=== PATIENT | female | born 1935 | race Caucasian/White ===

== ENCOUNTER → 2016-12-02 | Day surgery (SDC) | payer MEDICARE ==
[~2016-12-02] MED LIST: ATOR10TA60 PO; ATOR40TA59 PO; IV RINGERS,LACTATED 1000ML 1,000 ML IV SCH; LOSA1TAB18 PO; NAPR220T70 PO; PROPOFOL 40 ML IV ONE
[2016-12-02 10:53] VITALS: BP 122/59
--- NOTE | 2016-12-03 13:25 | PATHOLOGY ---
PATHOLOGY REPORT * * * * * * * * FINAL DIAGNOSIS: A. Terminal ileum biopsy: - Segment of colonic mucosa showing collagenous colitis. B. Random colon biopsy: - Collagenous colitis. COMMENT: Sections of the terminal ileum and random colon biopsies appear similar and reveal segments of colonic mucosa showing a mild chronic active colitis without crypt architectural distortion. Collagen is deposited around the absorptive capillary complex beneath the surface epithelium. The findings are supportive of the diagnosis of collagenous colitis. (JPM:mggaston; d/t: 12/03/16) REPORT ELECTRONICALLY SIGNED BY: Fili Raza M.D. DATE/TIME: 12/03/2016 13:24 * * * * * * * * GROSS PATHOLOGY: A. Received in formalin labeled "Mesha Lopez and terminal ileum bx," is a segment of looney soft tissue measuring 0.3 cm in maximum dimension. The specimen is submitted entirely in cassette A1. B. Received in formalin labeled "Mesha Lopez and random colon bx," are 7 segments of looney soft tissue measuring 1.9 x 0.5 x 0.3 cm in aggregate dimensions and ranging from 0.2 to 0.7 cm in maximum dimension. The specimen is submitted entirely in cassette B1. (TTL; 12/02/2016) INITIAL CPT CODE(S): A; 48952 B; 49694 Professional services performed [place] [facility] [address] Technical services performed by [facility] at [address] [place] [address] [address] [address]. SPECIMEN(S) RECEIVED: A.Terminal ileum biopsy B.Random colon biopsy CLINICAL HISTORY: Diarrhea PATIENT: MESHA LOPEZ /AGE: 212/29/1935 (Age: 80) PATIENT #: [id number] ALT CASE #: SPECIMEN COLLECTION DATE: 12/02/2016 SPECIMEN RECEIVED DATE: 12/02/2016 [facility] - [address] [place] [address] - PHONE: [phone] * * * END OF REPORT * * *
== END ==
LOC: SURG 08:13
PROVIDERS: ATTEND Internal Medicine Gastroenterology
DX: K52.9 Noninfective gastroenteritis and colitis, unspecified (principal); K83.0 Cholangitis; K64.0 First degree hemorrhoids; K57.30 Diverticulosis of large intestine without perforation or abscess without bleeding; I10 Essential (primary) hypertension; E78.00 Pure hypercholesterolemia, unspecified; I00 Rheumatic fever without heart involvement; Z82.49 Family history of ischemic heart disease and other diseases of the circulatory system; Z82.3 Family history of stroke; Z72.89 Other problems related to lifestyle; Z90.710 Acquired absence of both cervix and uterus; Z98.890 Other specified postprocedural states; Z87.891 Personal history of nicotine dependence
CPT/HCPCS: 45380; J2704; 88305

== ENCOUNTER → 2017-06-16 | Outpatient (CLI) | payer BC ==
[2016-12-02 10:53] VITALS: BP 122/59
[~2017-06-16] MED LIST changes: -IV RINGERS,LACTATED 1000ML 1,000 ML IV SCH; -PROPOFOL 40 ML IV ONE
--- NOTE | 2017-06-16 12:05 | RAD ---
DATE: 06/16/2017 EXAM: MAMMO MARLA SCREENING BILATERAL HISTORY: Routine screening COMPARISON: 05/10/2016, 05/20/2016 The breast parenchyma shows scattered fibroglandular densities. Breast parenchyma level B. FINDINGS: 2-D and 3-D tomosynthesis imaging was performed in CC and MLO projections. No new or enlarging breast densities are seen. Scattered benign type calcifications are present. No suspicious microcalcifications have developed. IMPRESSION: Stable mammograms without evidence of malignancy. BI-RADS CATEGORY: 2 BENIGN FINDING(S) RECOMMENDED FOLLOW-UP: 12M 12 MONTH FOLLOW-UP PQRS compliance statement: Patient information was entered into a reminder system with a target due date for the next mammogram. Mammography is a sensitive method for finding small breast cancers, but it does not detect them all and is not a substitute for careful clinical examination. A negative mammogram does not negate a clinically suspicious finding and should not result in delay in biopsying a clinically suspicious abnormality. "Our facility is accredited by the [employer] Mammography Program."
== END | disposition home or self-care (01) ==
LOC: KCIC MAMMO 11:02
PROVIDERS: ATTEND Family Medicine
DX: Z12.31 Encounter for screening mammogram for malignant neoplasm of breast (principal)
CPT/HCPCS: 77063; G0202; 77067

== ENCOUNTER 2017-06-24 06:18 | Observation (INO) | payer BC ==
[2017-06-24] VITALS (15 sets, daily range): BP systolic 134–192; BP diastolic 61–79
[~2017-06-24] VITALS: Ht 157.5 cm; Wt 65.0 kg
[2017-06-24] MEDS ORDERED: CALC500T30 PO (06:43)
[2017-06-24 07:08] LABS: HEMATOCRIT 38.1 % (36.0-47.0); HEMOGLOBIN 12.9 g/dL (12.0-15.5); RED BLOOD COUNT 4.09 x10^6/uL (3.50-5.40); RED CELL DISTRIBUTION WIDTH 13.6 % (11.5-14.5); WHITE BLOOD COUNT 5.6 x10^3/uL (4.0-11.0)
[2017-06-24] MEDS ORDERED: LIDOCAINE 2% 20 ML VIAL. ONE ×2 (07:08→08:36)
[2017-06-24] MEDS ORDERED: IODIXANOL 320 MG/ML 100 ML VIAL. ONE (07:10)
[2017-06-24 07:19] LABS: CALCIUM 9.6 mg/dL (8.5-10.1); CREATININE 1.7 mg/dL (0.6-1.0); GFR 28.9; POTASSIUM 4.4 mmol/L (3.5-5.1)
[2017-06-24 07:31] LABS: PROTHROMBIN TIME PATIENT 12.8 SEC (11.7-14.0)
[2017-06-24] MEDS ORDERED: MIDAZOLAM HCL/PF 2 MG/2 ML VIAL. ONE ×2 (07:48→08:48)
[2017-06-24] MEDS ORDERED: fentaNYL PF VIAL 100 MCG/2 ML VIAL ONE ×2 (07:48→09:29)
[2017-06-24] MEDS ORDERED: HEPARIN for IV BOLUS 10,000 UNIT/10 ML VIAL. ONE ×2 (07:49→08:41)
[2017-06-24] MEDS ORDERED: LIDOCAINE 2% 20 ML VIAL. IJ ONE (08:00)
[2017-06-24] MEDS ORDERED: HEPARIN for IV BOLUS 10,000 UNIT/10 ML VIAL. IV ONE (08:00)
[2017-06-24] MEDS ORDERED: fentaNYL PF VIAL 100 MCG/2 ML VIAL IV ONE ×2 (08:00→10:15)
[2017-06-24] MEDS ORDERED: IODIXANOL 320 MG/ML 100 ML VIAL. IART ONE (08:00)
[2017-06-24] MEDS ORDERED: MIDAZOLAM HCL/PF 2 MG/2 ML VIAL. IV ONE (08:00)
[2017-06-24] MEDS ORDERED: dilTIAZem IV PUSH 25 MG/5 ML VIAL ONE (08:41)
[2017-06-24] MEDS ORDERED: NITROGLYCERIN 4 MG/20 ML SYRINGE for CATH LAB. ONE ×2 (08:41→09:00)
[2017-06-24] MEDS ORDERED: NITROGLYCERIN 200 MCG/2 ML SYRINGE FOR CATH/VASC LAB. IART ONE (09:15)
[2017-06-24] MEDS ORDERED: NITROGLYCERIN 200 MCG/2 ML SYRINGE FOR CATH/VASC LAB. ONE (09:34)
[2017-06-24] MEDS: IV 1/2 NORMAL SALINE 1,000 ML IV SCH (10:10)
--- NOTE | 2017-06-24 10:10 | PDOC ---
MODERATE SEDATION ASSESSMENT RISKS/ALTERNATIVES Risks/Alternatives Risks and alternatives of this type of sedation and procedure discussed with: RISK/ALTERNATIVES: Patient H & P ON CHART H & P H & P on chart and reviewed for co-morbid conditions and appropriate labs. H&P ON CHART: Yes STATUS PREG STATUS ASSESSED: N/A MEDS/ALLERGIES REVIEWED Meds/Allergies Reviewed Medications and Allergies including time and route of recently administered narcotics and sedatives. MEDS/ALLERGIES REVIEWED: Yes ASA RATING ASA RATING: II AIRWAY ASSESSMENT Airway Assessment Airway patency, oral function limitations, presence of caps, crowns, dentures, partials, and ability to extend neck assessed. AIRWAY ASSESSMENT: Yes MALLAMPATI SCORE MALLAMPATI SCORE: II PRE-SEDATION ASSESSMENT PRE-SEDATION ASSESSMENT: Yes BARBARA RICE MD Jun 24, 2017 10:10
[2017-06-24] MEDS ORDERED: NITROGLYCERIN SUBLINGUAL 0.4 MG BOTTLE OF 25. SL PRN (10:15)
[2017-06-24] MEDS ORDERED: ACETAMINOPHEN 325 MG TABLET. PO PRN (10:15)
--- NOTE | 2017-06-24 10:39 | CARD ---
APPROVED REPORT Patient StatusOUT-PATIENT Optical Engineer: Jason Holm, RT (R) Procedure(s) performed: 1. Aortogram with bilateral lower extremity runoff 2. Successful orbital atherectomy/SENIOR PORTFOLIO ANALYST to right superficial femoral artery and successful balloon ang ioplasty to right peroneal artery Sedation time: 112 min INDICATION FOR PROCEDURE The indication(s) include : Peripheral vascular disease with claudication. PROCEDURE NARRATIVE After explaining the risks, benefits and alternative options, informed consent was obtained from sulma ent. Patient was brought to the cardiac Office System Analyst and both her groins were prepped and draped in the u sual fashion. 20 mL of 2% lidocaine was infiltrated into the skin and subcutaneous tissues of the rig ht groin for local anesthesia. Arterial access was obtained in the right common femoral artery and a 5 Panamanian sheath was inserted. 5 Panamanian pigtail catheter was used to perform aortogram with bilateral lower extremity runoff. A 5 Panamanian crossover catheter was advanced over the aortic felipe and with th e tip positioned in the left common iliac artery, selective left lower extremity angiography was perf ormed. Contrast injections were performed through the sheath in the right groin for right lower extre mity angiography. The following findings were noted. FINDINGS 1. No significant stenosis involving the distal descending aorta, bilateral common iliac and external iliac arteries. 2. No significant stenosis involving bilateral common femoral arteries. The right superficial femora l artery showed calcified 90% stenosis in the distal segment. The left superficial femoral artery did not show any significant stenosis. 3. No significant stenosis noted bilateral popliteal arteries. 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 INTERVENTION After infiltrating the skin and subcutis tissues of the left groin with local anesthetic, arterial ac cess was obtained in the left common femoral artery and a 6 Panamanian 45 cm destination sheath is insert ed. This was advanced over the aortic felipe with the help of a crossover catheter and the tip was po sitioned in the proximal segment of the right superficial femoral artery. The stenoses in the superfi cial femoral and peroneal arteries were crossed with a 0.014 inch command guidewire. The peroneal art neo stenosis was dilated with a 2.5 x 16 mm followed by 3.0 x 1 20 mm Carpenter [place] balloons. Subsequ ently, after exchanging the guidewire to a 0.014 inch viper guidewire, multiple orbital atherectomy p asses were performed within the lesion in the superficial femoral artery using 1.5 CSI Viropro athere ctomy radha. The stenosis was then dilated with a 5.0 x 40 mm Carpenter [place] balloon. Follow-up angior rhaphy showed resolution of both the stenoses with good distal flow. Patient tolerated the procedure well. Hemostasis in both her groins were achieved using Perclose suture closure device. There were no immediate complications. Conclusion 1. Bilateral lower extremity peripheral vascular disease as described above. 2. Successful orbital atherectomy/SENIOR PORTFOLIO ANALYST to the right superficial femoral artery and successful balloon angioplasty to the right peroneal artery.
--- NOTE | 2017-06-24 16:46 | CARD ---
APPROVED REPORT EXAM: Two-dimensional and M-mode echocardiogram with Doppler and color Doppler. Other Information Quality : Good INDICATION Hypertension/HCVD 2D DIMENSIONS RVDd2.0 (2.9-3.5cm)Left Atrium(2D)2.5 (1.6-4.0cm) IVSd1.2 (0.7-1.1cm)Aortic Root(2D)3.4 (2.0-3.7cm) LVDd4.5 (3.9-5.9cm)LVOT Diameter2.1 (1.8-2.4cm) PWd1.1 (0.7-1.1cm)LVDs2.9 (2.5-4.0cm) FS (%) 30.0 %SV62.0 ml LVEF(%)60.0 (>50%) Aortic Valve AoV Peak Rustam.107.3cm/sAoV VTI23.3cm AO Peak GR.4.6mmHgLVOT VTI 18.04cm AO Mean GR.2mmHgAVA (VTI)2.70cm2 Mitral Valve MV E Ukfxthpa51.5cm/sMV DECEL EZWN294tf MV A Maradsyy35.9cm/sE/A Ratio0.7 TDI Lateral E' P. V5.73cm/sMedial E' P. V3.41cm/s E/Lateral E'10.2E/Medial E'17.2 Tricuspid Valve TR P. Cahftbaq299eg/sRAP XZRGXAIB3faPo TR Peak Gr.82nqGbIYTO62qaUl Pulmonary Vein S1 Qixhtred83.5cm/sS2 Pvplhxxs77.44cm/s D2 Aqwucqds98.4cm/sPVa quwtjezr845jngt LEFT VENTRICLE The left ventricle is normal size. There is mild concentric left ventricular hypertrophy. The left ve ntricular systolic function is normal and the ejection fraction is within normal range. The Ejection Fraction is 55-60%. Septal motion consistent with conduction abnormality. Transmitral Doppler flow pa ttern is Grade I-abnormal relaxation pattern. RIGHT VENTRICLE The right ventricle is normal size. The right ventricular systolic function is normal. ATRIA The left atrium size is normal. The right atrium size is normal. The interatrial septum is intact wit h no evidence for an atrial septal defect or patent foramen ovale as noted on 2-D or Doppler imaging. AORTIC VALVE The aortic valve is normal in structure and function. Doppler and Color Flow revealed no significant aortic regurgitation. There is no significant aortic valvular stenosis. MITRAL VALVE The mitral valve is calcified but opens well. There is no evidence of mitral valve prolapse. There is no mitral valve stenosis. Doppler and Color-flow revealed mild mitral regurgitation. TRICUSPID VALVE The tricuspid valve is normal in structure and function. Doppler and Color Flow revealed trace tricus pid regurgitation. The PA pressure was estimated at 30 mmHg. There is no tricuspid valve stenosis. PULMONIC VALVE The pulmonary valve is normal in structure and function. Doppler and Color Flow revealed trace to mil d pulmonic valvular regurgitation. There is no pulmonic valvular stenosis. GREAT VESSELS The aortic root is normal in size. The ascending aorta is normal in size. The IVC is normal in size a nd collapses >50% with inspiration. PERICARDIAL EFFUSION There is no evidence of significant pericardial effusion. Critical Notification Critical Value: No <Conclusion> The left ventricle is normal size. The left ventricular systolic function is normal and the ejection fraction is within normal range. The Ejection Fraction is 55-60%. There is mild concentric left ventricular hypertrophy. There is no significant aortic valvular stenosis. Doppler and Color Flow revealed no significant aortic regurgitation. Doppler and Color-flow revealed mild mitral regurgitation. Doppler and Color Flow revealed trace tricuspid regurgitation. The PA pressure was estimated at 30 mmHg.
[2017-06-24] MEDS ORDERED: ATORVASTATIN CALCIUM 10 MG TABLET. PO SCH (21:00)
[2017-06-25 02:13] VITALS: BP 140/64
[2017-06-25] MEDS: IV 1/2 NORMAL SALINE 1,000 ML IV SCH ×2 (05:59→06:10)
[2017-06-25 07:10] VITALS: BP 135/61
[2017-06-25] MEDS ORDERED: ASPIRIN ENTERIC COATED 81 MG TABLET.DR. PO SCH (09:00)
[2017-06-25] MEDS ORDERED: CLOPIDOGREL BISULFATE 75 MG TABLET PO SCH (09:30)
--- NOTE | 2017-06-25 10:00 | PDOC3 ---
SAI BAEZ PORTABLE POWER TOOL REPAIRER 06/25/17 1000: Discharge Summary Visit Information Date of Admission: Jun 24, 2017 Date of Discharge: Jun 25, 2017 Admitting Diagnosis: Severe PAD with claudications Final Diagnosis Severe PAD with LLE percutaneous revascularization Brief Hospital Course Allergies Allergies Coded Allergies Type Severity Reaction Last Updated Verified No Known Drug Allergies 12/02/16 No Vital Signs Vital Signs Date Time Temp Pulse Resp B/P (MAP) Pulse Ox O2 Delivery O2 Flow Rate FiO2 06/25/17 08:00 Room Air 2.0 06/25/17 07:10 98.0 93 20 135/61 (85) 96 98.0 Lab Results Laboratory Tests Test 06/24/17 06:40 06/24/17 07:02 Prothrombin Time 12.8 SEC (11.7-14.0) Prothromb Time International Ratio 1.0 (0.8-1.1) Activated Partial Thromboplast Time 29 SEC (24-38) White Blood Count 5.6 x10^3/uL (4.0-11.0) Red Blood Count 4.09 x10^6/uL (3.50-5.40) Hemoglobin 12.9 g/dL (12.0-15.5) Hematocrit 38.1 % (36.0-47.0) Mean Corpuscular Volume 93 fL (79-100) Mean Corpuscular Hemoglobin 32 pg (25-35) Mean Corpuscular Hemoglobin Concent 34 g/dL (31-37) Red Cell Distribution Width 13.6 % (11.5-14.5) Platelet Count 234 x10^3/uL (140-400) Sodium Level 142 mmol/L (136-145) Potassium Level 4.4 mmol/L (3.5-5.1) Chloride Level 105 mmol/L (98-107) Carbon Dioxide Level 27 mmol/L (21-32) Anion Gap 10 (6-14) Blood Urea Nitrogen 46 mg/dL (7-20) Creatinine 1.7 mg/dL (0.6-1.0) Estimated GFR (Cockcroft-Gault) 28.9 Glucose Level 90 mg/dL (70-99) Calcium Level 9.6 mg/dL (8.5-10.1) Brief Hospital Course Ms. Cueva is a n 81 yo female admitted for planned femoral arteriogram for noted PAD with claudication symptoms. With femoral arteriogram via right transfemoral approach, she was noted with bilateral PAD with significant stenosis to RLE arterial system. Successful orbital atherectomy/SPECIAL SYSTEMS TECHNICIAN to the right superficial femoral artery and successful balloon angioplasty to the right peroneal artery were performed without complications. She did well overnight, VSS, and complains of significant discomfort. She has been ambulatory without difficulty. Right groin arteriotomy iste is intact without erythema, swelling and neurovascular status to bilateral LE is intact. She is notable for renal insufficiency in which she will have have repeat BMP as an outpt and to seen byt her PCP in 1-2 weeks. Discussed post arteriogram instructions to be reinforced by staff. Pt is to start on plavix to be taken for only a month and ECASA 81 mg indefinitely otherwise she is to continnue her home meds. Pt is to follow up in office in 3-4 weeks. Discharge Information Condition at Discharge: Stable Follow Up: Weeks (4) Disposition/Orders: D/C to Home Scheduled Aspirin (Aspirin Ec), 81 MG PO DAILYWBKFT Atorvastatin Calcium (Atorvastatin Calcium), 10 MG PO HS, (Reported) Clopidogrel Bisulfate (Clopidogrel), 75 MG PO DAILYWBKFT Losartan/Hydrochlorothiazide (Losartan-Hctz 100-12.5 Mg Tab), 1 EACH PO DAILY, ( Reported) Naproxen Sodium (Aleve), 220 MG PO BID, (Reported) Miscellaneous Medications Calcium Carbonate (Calcium), 500 MG PO, (Reported) Patient Instructions Patient Instructions GENERAL INSTRUCTIONS: 1. Your dressing should be removed prior to leaving the hospital. 2. It is OK to shower the day after your procedure. 3. If you received stents, be sure to carry your stent information card with you in your wallet/purse at all times. 4. Call the office immediately at [phone] if you notice any fever or if there is redness, worsening tenderness/pain, increased bruising, or drainage from the puncture site. 5. Should you have bleeding from the site, lie down immediately & put pressure on the site. The pressure should be hard enough to stop the bleeding. Have the nearest person call 911. DO NOT try to drive to the ER with active bleeding. 6. If you notice a change in color, coolness to touch, or loss of feeling in the affected extremity, come to the emergency room. Please have someone drive you or call 911 if no one is available. DO NOT drive yourself. 7. If you normally take glucophage (metformin), please do not take this medicine for 48 hours following your procedure. 8. DO NOT STOP TAKING YOUR PLAVIX OR ASPIRIN UNLESS IT IS CLEARED BY A TAVERN OPERATOR OF YOUR PMO MANAGER AT OUR OFFICE. 9. QUIT SMOKING: the [place] [employer], [place] [employer], & [place] [employer] have cessation resources available on their websites 10. Please have someone available to drive you home from the hospital as you may be limited by sedation medications given during the procedure. Femoral (Groin) access: 1. Do no lifting, pushing, pulling, bending, stooping, or recurrent stair climbing for 3 days following your procedure. 2. Once past the first 3 days, do not do any HEAVY exertion or lifting for one week following the procedure. No gym workouts, running, lifting greater than a gallon of milk, etc 3. Do not submerge in bath or pool for one week. OK to drive 3 days following your procedure, but if going long distance, do not go alone & take hourly breaks to get out of car and walk around. Call the office at [phone] for any questions or concerns. REJI COFFMAN MD 06/25/171942: Discharge Summary Brief Hospital Course Brief Hospital Course Pt. seen and examined. Agree with above SENIOR NET ARCHITECT note. Ok to DC home today. F/u in the office. Discharge Information Scheduled Aspirin (Aspirin Ec), 81 MG PO DAILYWBKFT Atorvastatin Calcium (Atorvastatin Calcium), 10 MG PO HS, (Reported) Clopidogrel Bisulfate (Clopidogrel), 75 MG PO DAILYWBKFT Losartan/Hydrochlorothiazide (Losartan-Hctz 100-12.5 Mg Tab), 1 EACH PO DAILY, ( Reported) Naproxen Sodium (Aleve), 220 MG PO BID, (Reported) Miscellaneous Medications Calcium Carbonate (Calcium), 500 MG PO, (Reported) SAI BAEZ APRN Jun 25, 2017 10:00 REJI COFFMAN MD Jun 25, 2017 19:43
[2017-06-25] MEDS ORDERED: ASPI-612 PO (10:04)
[2017-06-25] MEDS ORDERED: CLOP75TA PO (10:04)
[2017-06-25 11:00] VITALS: BP 152/64
== END 2017-06-25 13:30 | disposition home or self-care (01) ==
LOC: CCL 06:18 → 2 SOUTH 09:48
PROVIDERS: ADMIT Internal Medicine Cardiovascular Disease; ATTEND Internal Medicine Cardiovascular Disease
DX: I73.9 Peripheral vascular disease, unspecified (principal); M19.90 Unspecified osteoarthritis, unspecified site; N28.9 Disorder of kidney and ureter, unspecified; E78.5 Hyperlipidemia, unspecified; I10 Essential (primary) hypertension; E78.00 Pure hypercholesterolemia, unspecified; Z87.891 Personal history of nicotine dependence; Z82.0 Family history of epilepsy and other diseases of the nervous system
CPT/HCPCS: 36415; 37225; 37228; 75630; 80048; 85027; 85610; 85730; 93306; C1724; C1725; C1769; C1771; C1892; G0269; G0378; G0379; J1644; J2250; J3010; J3490; J7030; 99152; 99153; J2001

== ENCOUNTER → 2018-02-15 | Outpatient (CLI) | payer BC ==
[2018-02-15] MEDS: REGADENOSON 0.4 MG/5 ML DISP.SYRIN. IV (09:18)
== END | disposition home or self-care (01) ==
LOC: NM 07:34
DX: I73.9 Peripheral vascular disease, unspecified (principal); I10 Essential (primary) hypertension; E78.5 Hyperlipidemia, unspecified; E78.00 Pure hypercholesterolemia, unspecified
CPT/HCPCS: 78452; 93017; 96374; 96375; 96376; A9500; J2785

== ENCOUNTER → 2018-08-01 | Outpatient (CLI) | payer BC ==
[~2018-08-01] MED LIST changes: +ASPI-612 PO; +CALC500T30 PO; +CLOP75TA PO; -LOSA1TAB18 PO; +LOSA1TAB25 PO
--- NOTE | 2018-08-01 13:56 | KCIC ---
Bilateral digital screening mammograms with 3-D tomosynthesis: Reason for examination: Routine screening. Comparison is made to previous studies dated 06/16/2017 and 05/10/2016. Bilateral mammograms in CC and oblique projections were obtained with 2-D imaging and 3-D tomosynthesis imaging on a Siemens Inspiration unit and reviewed on the workstation. Interpretation was made with the benefit of CAD. The skin and nipples show no abnormalities. No abnormal axillary lymph nodes are seen. The breast parenchyma shows scattered fatty and fibroglandular density. (Breast density: Category B.) There are no dominant masses, suspicious calcifications or architectural distortion. Benign calcifications are present. Impression: No evidence of malignancy. Recommend routine screening. BI-RAD Category 2: Benign. "Our facility is accredited by the [employer] Mammography Program." This patient's information has been entered into a reminder system for the patient to be notified with the results of her examination and a target date for the next mammogram. Electronically signed by: Whitney Voss MD (08/01/2018 1:52 PM) [id number]
== END | disposition home or self-care (01) ==
LOC: KCIC MAMMO 08:13
PROVIDERS: ATTEND Family Medicine
DX: Z12.31 Encounter for screening mammogram for malignant neoplasm of breast (principal); I10 Essential (primary) hypertension; E78.00 Pure hypercholesterolemia, unspecified; Z87.891 Personal history of nicotine dependence; Z85.3 Personal history of malignant neoplasm of breast; Z90.710 Acquired absence of both cervix and uterus; Z82.49 Family history of ischemic heart disease and other diseases of the circulatory system; Z82.3 Family history of stroke
CPT/HCPCS: 77063; 77067

== ENCOUNTER → 2019-01-31 | Outpatient (CLI) | payer BC ==
--- NOTE | 2019-01-31 09:07 | CARD ---
MR#: [id number] Date of Study: 01/31/2019 Ordering Physician: BARBARA RICE, Referring Physician: BARBARA RICE Tech: Ai Alvarado RDCS APPROVED REPORT EXAM: Two-dimensional and M-mode echocardiogram with Doppler and color Doppler. Other Information Quality : GoodHR: 72bpm Rhythm : NSR INDICATION Hypertension/HCVD 2D DIMENSIONS RVDd2.5 (2.9-3.5cm)Left Atrium(2D)2.9 (1.6-4.0cm) IVSd1.8 (0.7-1.1cm)Aortic Root(2D)3.6 (2.0-3.7cm) LVDd4.0 (3.9-5.9cm)LVOT Diameter2.0 (1.8-2.4cm) PWd1.0 (0.7-1.1cm)LVDs2.9 (2.5-4.0cm) FS (%) 28.8 %SV39.3 ml LVEF(%)55.9 (>50%) M-Mode DIMENSIONS Left Atrium(MM)3.12 (2.5-4.0cm)Aortic Root3.42 (2.2-3.7cm) Aortic Valve AoV Peak Rustam.104.4cm/sAoV VTI20.2cm AO Peak GR.4.4mmHgLVOT Peak Rustam.67.3cm/s AO Mean GR.2mmHgAVA (VMAX)2.06cm2 FABIANA (VTI)2.10cm2 Mitral Valve MV E Eojdhjnn84.7cm/sMV DECEL MVLI165bj MV A Gwswpkfo67.7cm/sE/A Ratio0.7 MV A Utqdcsov55nb Pulmonary Valve PV Peak Yhpmheca257.8cm/s Tricuspid Valve TR P. Vrfdrppy304nj/sRAP OSIBZTVY1anWq TR Peak Gr.45bgEcESDZ08joWe LEFT VENTRICLE The left ventricle is normal size. Proximal septal hypertrophy is noted. The left ventricular systoli c function is normal and the ejection fraction is within normal range. The Ejection Fraction is 55-60 %. There is normal LV segmental wall motion. Transmitral Doppler flow pattern is Grade I-abnormal rel axation pattern. RIGHT VENTRICLE The right ventricle is normal size. There is normal right ventricular wall thickness. The right ventr icular systolic function is normal. ATRIA The left atrium size is normal. The right atrium size is normal. The interatrial septum is intact wit h no evidence for an atrial septal defect or patent foramen ovale as noted on 2-D or Doppler imaging. AORTIC VALVE The aortic valve is calcified but opens well. The aortic valve is trileaflet. Doppler and Color Flow revealed no significant aortic regurgitation. There is no significant aortic valvular stenosis. MITRAL VALVE The mitral valve is thickened but opens well. There is no evidence of mitral valve prolapse. There is no mitral valve stenosis. Doppler and Color-flow revealed mild mitral regurgitation. TRICUSPID VALVE The tricuspid valve is normal in structure and function. Doppler and Color Flow revealed mild tricusp id regurgitation. There is mild pulmonary hypertension. The PA pressure was estimated at 37 mmHg. The re is no tricuspid valve prolapse or vegetation. There is no tricuspid valve stenosis. PULMONIC VALVE The pulmonic valve is not well visualized. GREAT VESSELS The aortic root is normal in size. The ascending aorta is normal in size. The IVC is normal in size a nd collapses >50% with inspiration. PERICARDIAL EFFUSION There is no evidence of significant pericardial effusion. Critical Notification Critical Value: No <Conclusion> The left ventricular systolic function is normal and the ejection fraction is within normal range. Th e Ejection Fraction is 55-60%. Proximal septal hypertrophy is noted. There is normal LV segmental wall motion. Doppler and Color Flow revealed mild tricuspid regurgitation. There is mild pulmonary hypertension. T he PA pressure was estimated at 37 mmHg. Signed by : Abran Danielle, Electronically Approved : 01/31/2019 09:06:32
--- NOTE | 2019-01-31 11:39 | RAD ---
MR#: [id number] Date of Study: 01/31/2019 Ordering Physician: BARBARA RICE, Referring Physician: BARBARA RICE, Tech: Tj Boogie MBA, RDMS, RVT, RDCS, RTR APPROVED REPORT Patient Location: OUT-PATIENT Indications PAD VELOCITY AND DOPPLER WAVEFORM ANALYSIS RIGHT cm/secWaveformSeverity LEFT cm/secWaveform Severity dCFA 226.0BiphasicdCFA 197.0Biphasic Prof Fem Art. 74.0BiphasicProf Fem Art. 62.0Biphasic Fem Art Prox. 117.0BiphasicFem Art Prox. 126.0Biphasic Fem Art Mid. 122.0BiphasicFem Art Mid. 111.0Biphasic Fem Art Dist. 143.0BiphasicFem Art Dist. 92.0Biphasic Pop Art(Fossa) 81.0BiphasicPop Art(AK) 100.0Biphasic WOMEN SPECIALIST Prox. 86.0BiphasicPTA Prox. 66.0Biphasic WOMEN SPECIALIST Dist. 69.0BiphasicPTA Dist. 68.0Biphasic Per Art Mid. 67.0MonophasicPer Art Mid. 76.0Biphasic ELIZABETH Prox. 150.0BiphasicATA Prox. 51.0Biphasic DPA 35MonophasicDPA 30Monophasic Findings Grayscale images of the bilateral lower extremity arterial vessels reveals mild intimal hyperplasia w ithout any focal obstructive plaque. Mildly elevated bilateral common femoral arterial velocities in a biphasic wave pattern suggestive of mild disease but no focal obstruction. The bilateral superficial femoral, popliteal arteries are wit hout any disease. The bilateral below-knee vessels are patent with three-vessel runoff. Probable 50% stenosis involving the anterior tibial artery on the right side. Critical Notification Critical Value: No <Conclusion> 1. No significant flow-limiting stenosis identified in the bilateral lower 70 arterial vessels. Signed by : Abran Danielle, Electronically Approved : 01/31/2019 11:38:56
== END | disposition home or self-care (01) ==
LOC: ECHO 07:41
PROVIDERS: ATTEND Internal Medicine Cardiovascular Disease
DX: I08.3 Combined rheumatic disorders of mitral, aortic and tricuspid valves (principal); M71.22 Synovial cyst of popliteal space [Baker], left knee; I11.9 Hypertensive heart disease without heart failure; I27.20 Pulmonary hypertension, unspecified; R00.8 Other abnormalities of heart beat
CPT/HCPCS: 93306; 93925

== ENCOUNTER → 2019-08-28 | Outpatient (CLI) | payer BC ==
--- NOTE | 2019-08-28 19:06 | KCIC ---
BILATERAL SCREENING MAMMOGRAM, 3-D History: Routine screening. Comparison: Bilateral mammogram August 01, 2018 and 2016. Technique: MLO and CC digital tomosynthesis (3D) images obtained. Radiologist reviewed these images on dedicated workstation. Findings: Breast Tissue Density B : There are scattered areas of fibroglandular density. There are numerous bilateral benign breast calcifications. There are no dominant masses, suspicious microcalcifications, or architectural distortion. IMPRESSION: No mammographic evidence of malignancy. Recommend routine screening. BI-RADS category 2: Benign findings. The images were reviewed with computer-aided detection. Patient information is entered into reminder system with a target due date for the next screening mammogram. Mammography is the most sensitive method for finding small breast cancers, but it does not detect them all and is not a substitute for careful clinical examination. A negative mammogram does not negate a clinically suspicious finding and should not result in delay in biopsying a clinically suspicious abnormality. "Our facility is accredited by the [employer] Mammography Program." Electronically signed by: Yasir Singh MD (08/28/2019 7:02 PM) [id number]
== END | disposition home or self-care (01) ==
LOC: KCIC MAMMO 10:22
PROVIDERS: ATTEND Family Medicine
DX: Z12.31 Encounter for screening mammogram for malignant neoplasm of breast (principal); N64.89 Other specified disorders of breast
CPT/HCPCS: 77063; 77067

== ENCOUNTER → 2020-09-01 | Outpatient (CLI) | payer BC ==
[~2020-09-01] MED LIST changes: -ASPI-612 PO; +ASPI-886 PO
--- NOTE | 2020-09-01 16:05 | KCIC ---
2 view study of the left calcaneus Clinical indications: Left heel pain since January 2020. No known injury. FINDINGS: No acute fracture is seen and Boehler's angle is maintained. No lytic process is evident. There is a moderate-sized plantar spur of the calcaneus. 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 There is a small posterior spur of the calcaneus with adjacent calcification of the Achilles tendon consistent with calcific tendinitis. IMPRESSION: No acute osseous abnormality. Calcaneal spurs as discussed above. Electronically signed by: Anton Monroy MD (09/01/2020 4:02 PM) [id number]
== END ==
LOC: KCIC 14:28
PROVIDERS: ATTEND Nurse Practitioner Family
DX: M77.32 Calcaneal spur, left foot (principal); M76.62 Achilles tendinitis, left leg
CPT/HCPCS: 73650

== ENCOUNTER → 2020-09-01 | Outpatient (CLI) | payer BC ==
--- NOTE | 2020-09-01 19:35 | KCIC ---
BILATERAL SCREENING MAMMOGRAM, 3-D History: Routine screening. Comparison: Bilateral mammogram August 28, 2019. Technique: MLO and CC digital tomosynthesis (3D) images obtained. Radiologist reviewed these images on dedicated workstation. Findings: Breast Tissue Density B : There are scattered areas of fibroglandular density. Arterial and nonarterial calcifications are redemonstrated bilaterally. There are no dominant masses, suspicious microcalcifications, or architectural distortion. IMPRESSION: No mammographic evidence of malignancy. Recommend routine screening. BI-RADS category 2: Benign findings. The images were reviewed with computer-aided detection. Patient information is entered into reminder system with a target due date for the next screening mammogram. Mammography is the most sensitive method for finding small breast cancers, but it does not detect them all and is not a substitute for careful clinical examination. A negative mammogram does not negate a clinically suspicious finding and should not result in delay in biopsying a clinically suspicious abnormality. "Our facility is accredited by the [employer]ammography [employer]." Electronically signed by: Yasir Singh MD (09/01/2020 7:32 PM) [id number]
== END ==
LOC: KCIC MAMMO 14:17
PROVIDERS: ATTEND Family Medicine
DX: Z12.31 Encounter for screening mammogram for malignant neoplasm of breast (principal)
CPT/HCPCS: 77063; 77067

== ENCOUNTER → 2020-09-12 | Outpatient (CLI) | payer BC ==
[~2020-09-12] MED LIST changes: +REGADENOSON 0.4 MG/5 ML DISP.SYRIN. IV ONE
--- NOTE | 2020-09-12 14:30 | RAD ---
MR#: [id number] Date of Study: 09/12/2020 Ordering Physician: BARBARA RICE Referring Physician: MARGARET LIANG Tech: APPROVED REPORT Test Type: Pharmacological Stress Nurse/Tech: Daniel PATHAK Test Indications: HTN, Dyspnea Cardiac History: HTN, See EMR Medications: See EMR Medical History: x-smoker quit 1999, See EMR Resting ECG: SR w/ BBB Resting Heart Rate: 64 bpm Resting Blood Pressure: 187/71mmHg Pretest Chest Pain: No chest pain Nurse/Tech Notes Lungs CTA, Heart tones regular Consent: The procedure was explained to the patient in lay terms. Informed consent was witnessed. Timothy eout was entered into [facility]. History and Stress Test performed by ISIDRO Sampson Pharm. Details Pharmacologic stress testing was performed using 0.4mg per 5ml of regadenoson given intravenously ove r 7-10 seconds. Stress Symptoms No chest pain or symptoms. POST EXERCISE Reason for Termination: Infusion complete Max HR: 93 bpm Max Blood Pressure: 162/67mmHg Blood Pressure response to exercise: Normal blood pressure response during stress. Heart Rate response to exercise: WNL Chest Pain: No. Arrhythmia: No. ST Change: No. INTERPRETATION Stress EKG Conclusion: Baseline EKG showed sinus rhythm with IVCD. No ischemic changes at peak stres s. No arrhythmias. Imaging Protocol IMAGE PROTOCOL: Rest Tc-99m/stress Tc-99m 1 day Rest: Stress: Viability: Radiopharm.Tc99m GzunplcomIy57s Sestamibi Dose10.4mCi 32.5mCi Duration 13min. 13min. Img Date 09/12/2020 09/12/2020 Inj-Img Plle95wvr. 60min. Rest Admin Site:IV - Left AntecubitalAdministrator:RT Amari (R)(N) Stress Admin Site: IV - Left AntecubitalAdministrator: ISIDRO Sampson STRESS DATA End Diast. Vol.60.0mlLVEDV index BSA36.0ml End Syst. Vol.14.0mlLVESV index BSA9.0ml Myocardial Ibky950.0gEject. Upohndti73.0% Stress Scores Regional WT1.00Summed WT20.00 Regional WM0.00Summed WM1.00 Study quality was good. Left Ventricular size was Normal at Rest and Stress. Lung uptake was . Left Ventricular ejection fraction is 77%. The rest and stress images show normal perfusion, normal contraction and thickening. LV Perf. Quant 17 Seg. SSS1.00 17 Seg. SRS3.00 17 Seg. SDS0.00 Stress Defect Extent (% LAD)0.00Rest Defect Extent (% LAD)13.10Rev. Defect Extent (% LAD)0.00 Stress Defect Extent (% LCX) 0.00Rest Defect Extent (% LCX)0.00Rev. Defect Extent (% LCX)0.00 Stress Defect Extent (% RCA)0.00Rest Defect Extent (% RCA)0.00Rev. Defect Extent (% RCA)0.00 Stress Defect Extent (% CESAR)0.00Rest Defect Extent (% CESAR)5.40Rev. Defect Extent (% CESAR)0.00 Conclusion 1. Regadenoson cardioisotope stress test did not show any evidence of ischemia or infarct. 2. Normal left ventricular systolic function with ejection fraction calculated at 77%. 3. Low risk for cardiac events. Signed by : Barbara Rice, Electronically Approved : 09/12/2020 14:29:44
--- NOTE | 2020-09-12 14:48 | CARD ---
MR#: [id number] Date of Study: 09/12/2020 Ordering Physician: BARBARA RICE, Referring Physician: BARBARA RICE Tech: Gladys El RDCS APPROVED REPORT EXAM: Two-dimensional and M-mode echocardiogram with Doppler and color Doppler. Other Information Quality : Good INDICATION Hypertension/HCVD Dyspnea on Exertion 2D DIMENSIONS Left Atrium(2D)3.7 (1.6-4.0cm)IVSd0.9 (0.7-1.1cm) Aortic Root(2D)3.1 (2.0-3.7cm)LVDd5.1 (3.9-5.9cm) LVOT Diameter2.2 (1.8-2.4cm)PWd0.7 (0.7-1.1cm) LVDs3.5 (2.5-4.0cm)FS (%) 31.8 % SV72.9 mlLVEF(%)59.6 (>50%) Aortic Valve AoV Peak Rustam.146.1cm/sAoV VTI28.5cm AO Peak GR.8.5mmHgLVOT Peak Rustam.137.4cm/s AO Mean GR.5mmHgAVA (VMAX)3.52cm2 FABIANA (VTI)3.80cm2 Mitral Valve MV E Dixyzsxb13.2cm/sMV DECEL QTSQ587vk MV A Arikmqmh23.6cm/sE/A Ratio0.7 Tricuspid Valve TR P. Kosqbakn522sl/sRAP EHKHKQPB2isBk TR Peak Gr.82nnCsXHDT26abEo Pulmonary Vein S1 Rmmcyahg91.3cm/sD2 Xblhhxub28.6cm/s LEFT VENTRICLE The left ventricle is normal size. There is normal left ventricular wall thickness. The left ventricu lar systolic function is normal. The Ejection Fraction is 55-60%. There is normal LV segmental wall m otion. Transmitral Doppler flow pattern is Grade I-abnormal relaxation pattern. RIGHT VENTRICLE The right ventricle is normal size. The right ventricular systolic function is normal. ATRIA The left atrium size is normal. The right atrium size is normal. The interatrial septum is intact wit h no evidence for an atrial septal defect or patent foramen ovale as noted on 2-D or Doppler imaging. AORTIC VALVE The aortic valve is calcified but opens well. Doppler and Color Flow revealed trace aortic regurgitat ion. There is no significant aortic valvular stenosis. MITRAL VALVE The mitral valve is normal in structure and function. There is no evidence of mitral valve prolapse. There is no mitral valve stenosis. Doppler and Color-flow revealed trace mitral regurgitation. TRICUSPID VALVE The tricuspid valve is normal in structure and function. Doppler and Color Flow revealed mild tricusp id regurgitation. There is mild pulmonary hypertension. The PA pressure was estimated at 37 mmHg. The re is no tricuspid valve stenosis. PULMONIC VALVE The pulmonic valve is not well visualized. Doppler and Color Flow revealed no pulmonic valvular regur gitation. There is no pulmonic valvular stenosis. GREAT VESSELS The aortic root is normal in size. The ascending aorta is normal in size. The IVC is normal in size a nd collapses >50% with inspiration. PERICARDIAL EFFUSION There is no evidence of significant pericardial effusion. Critical Notification Critical Value: No <Conclusion> The left ventricular systolic function is normal. The Ejection Fraction is 55-60%. There is normal LV segmental wall motion. Transmitral Doppler flow pattern is Grade I-abnormal relaxation pattern. Trace mitral regurgitation. Mild tricuspid regurgitation. The PA pressure was estimated at 37 mmHg. There is no evidence of significant pericardial effusion. Signed by : Barbara Rice, Electronically Approved : 09/12/2020 14:48:26
== END ==
LOC: ECHO 08:42
PROVIDERS: ATTEND Internal Medicine Cardiovascular Disease
DX: I08.2 Rheumatic disorders of both aortic and tricuspid valves (principal); I10 Essential (primary) hypertension; I27.20 Pulmonary hypertension, unspecified
CPT/HCPCS: 78452; 93017; 93306; A9500; J2785

== ENCOUNTER → 2021-09-16 | Outpatient (CLI) | payer BC ==
[~2021-09-16] MED LIST changes: +LEVO100T5 PO; -REGADENOSON 0.4 MG/5 ML DISP.SYRIN. IV ONE
--- NOTE | 2021-09-16 16:36 | CARD ---
MR#: [id number] Date of Study: 09/16/2021 Ordering Physician: BARBARA RICE, Referring Physician: BARBARA RICE Tech: Dixie Hobson [facility] APPROVED REPORT EXAM: Two-dimensional and M-mode echocardiogram with Doppler and color Doppler. Other Information Quality : AverageHR: 68bpm Rhythm : NSR INDICATION Hypertension/HCVD RISK FACTORS Hypertension 2D DIMENSIONS RVDd2.9 (2.9-3.5cm)Left Atrium(2D)4.5 (1.6-4.0cm) IVSd1.2 (0.7-1.1cm)Aortic Root(2D)3.7 (2.0-3.7cm) LVDd4.3 (3.9-5.9cm)LVOT Diameter2.0 (1.8-2.4cm) PWd1.0 (0.7-1.1cm)LVDs2.8 (2.5-4.0cm) FS (%) 35.9 %SV55.1 ml LVEF(%)65.7 (>50%) Aortic Valve AoV Peak Rustam.149.2cm/sAoV VTI33.0cm AO Peak GR.8.9mmHgLVOT Peak Rustam.108.3cm/s AO Mean GR.5mmHgAVA (VMAX)2.33cm2 Mitral Valve MV E Zpxirqdk17.5cm/sMV DECEL VFGN249bq MV A Scqmwkrz77.1cm/sE/A Ratio0.7 Pulmonary Valve PV Peak Dplldgsg232.0cm/s Tricuspid Valve TR P. Psqryywx769wk/sTR Peak Gr.31mmHg LEFT VENTRICLE The left ventricle is normal size. There is borderline concentric left ventricular hypertrophy. The l eft ventricular systolic function is normal. Estimated ejection fraction 60-65%. There is normal LV s egmental wall motion. Transmitral Doppler flow pattern is Grade I-abnormal relaxation pattern. RIGHT VENTRICLE The right ventricle is normal size. There is normal right ventricular wall thickness. The right ventr icular systolic function is normal. ATRIA The left atrium size is normal. The right atrium size is normal. The interatrial septum is intact wit h no evidence for an atrial septal defect or patent foramen ovale as noted on 2-D or Doppler imaging. AORTIC VALVE The aortic valve is normal in structure and function. Doppler and Color Flow revealed trace aortic re gurgitation. There is no significant aortic valvular stenosis. MITRAL VALVE The mitral valve is normal in structure and function. There is no evidence of mitral valve prolapse. There is no mitral valve stenosis. Doppler and Color-flow revealed mild mitral regurgitation. TRICUSPID VALVE The tricuspid valve is normal in structure and function. Doppler and Color Flow revealed mild tricusp id regurgitation. Estimated PAP 35 mmHg. There is no tricuspid valve stenosis. PULMONIC VALVE The pulmonary valve is normal in structure and function. Doppler and Color Flow revealed mild pulmoni c valvular regurgitation. GREAT VESSELS The aortic root is mildly enlarged. The IVC is normal in size and collapses >50% with inspiration. PERICARDIAL EFFUSION There is no evidence of significant pericardial effusion. Critical Notification Critical Value: No <Conclusion> The left ventricular systolic function is normal. Estimated ejection fraction 60-65%. There is normal LV segmental wall motion. Transmitral Doppler flow pattern is Grade I-abnormal relaxation pattern. Mild mitral regurgitation. Mild tricuspid regurgitation. Estimated PAP 35 mmHg. There is no evidence of significant pericardial effusion. Signed by : Barbara Rice, Electronically Approved : 09/16/2021 16:36:38
--- NOTE | 2021-09-17 08:25 | RAD ---
MR#: [id number] Date of Study: 09/16/2021 Ordering Physician: BARBARA RICE, Referring Physician: BARBARA RICE, Tech: Jordana Rmaon, SHIVA, RVT, RTR APPROVED REPORT Patient Location: OUT-PATIENT Indications PAD VELOCITY AND DOPPLER WAVEFORM ANALYSIS RIGHT cm/secWaveformSeverity LEFT cm/secWaveform Severity pCFA 219.8pCFA 203.9 Prof Fem Art. 214.0Prof Fem Art. 148.9 Fem Art Prox. 106.2Fem Art Prox. 113.4 Fem Art Mid. 98.9Fem Art Mid. 94.9 Fem Art Dist. 86.8Fem Art Dist. 66.9 Pop Art(AK) 59.1Pop Art(AK) 116.5 COOPER APPRENTICE Prox. 75.2PTA Prox. 90.1 COOPER APPRENTICE Dist. 30.6PTA Dist. 12.3 Per Art Prox. 82.9Per Art Prox. 62.8 ELIZABETH Prox. 23.1ATA Prox. 39.9 DPA 35DPA 55 Findings Grayscale imaging of bilateral lower extremity peripheral artery showed moderate atherosclerotic plaq ue. Fuentes's cyst noted in the left popliteal fossa measuring 4.9 x 2.5 x 1.3 cm. Spectral waveform and color duplex imaging showed elevated peak systolic velocities in bilateral comm on femoral artery suggesting greater than 70% stenosis. There is three-vessel runoff below the knee bilaterally. There is monophasic flow noted bilateral posterior tibial arteries suggesting at least moderate diffuse disease. The left posterior tibial artery appears to be occluded distally. Critical Notification Critical Value: No <Conclusion> Bilateral lower extremity arterial duplex scan showed significant greater than 70% stenosis involving bilateral common femoral arteries. Fuentes's cyst noted left popliteal fossa measuring 4.9 x 2.5 x 1.3 cm Signed by : Barbara Rice, Electronically Approved : 09/17/2021 08:25:07
== END ==
LOC: ECHO 08:31
PROVIDERS: ATTEND Internal Medicine Cardiovascular Disease
DX: I08.8 Other rheumatic multiple valve diseases (principal); I70.203 Unspecified atherosclerosis of native arteries of extremities, bilateral legs; M71.22 Synovial cyst of popliteal space [Baker], left knee; I10 Essential (primary) hypertension
CPT/HCPCS: 93306; 93925

== ENCOUNTER 2021-10-02 06:55 | Outpatient (CLI) | payer BC ==
[2021-10-02] VITALS (11 sets, daily range): BP systolic 13–162; BP diastolic 64–96
[~2021-10-02] VITALS: Ht 157.5 cm; Wt 63.1 kg
[~2021-10-02 06:55] MED LIST changes: -LEVO100T5 PO
[2021-10-02 07:32] LABS: HEMATOCRIT 39.2 % (36.0-47.0); HEMOGLOBIN 13.1 g/dL (12.0-15.5); RED BLOOD COUNT 4.12 x10^6/uL (3.50-5.40); RED CELL DISTRIBUTION WIDTH 13.5 % (11.5-14.5); WHITE BLOOD COUNT 5.7 x10^3/uL (4.0-11.0)
[2021-10-02] MEDS ORDERED: IODIXANOL 320 MG/ML 100 ML VIAL. ONE (07:39)
[2021-10-02] MEDS ORDERED: LEVO100T5 PO (07:41)
[2021-10-02 07:44] LABS: PROTHROMBIN TIME PATIENT 12.2 SEC (11.7-14.0)
[2021-10-02 08:12] LABS: CALCIUM 9.1 mg/dL (8.5-10.1); CREATININE 1.2 mg/dL (0.6-1.0); GFR 42.8; POTASSIUM 4.6 mmol/L (3.5-5.1)
[2021-10-02] MEDS ORDERED: MIDAZOLAM HCL/PF 2 MG/2 ML VIAL. ONE ×2 (08:22→08:49)
[2021-10-02] MEDS ORDERED: NITROGLYCERIN 200 MCG/2 ML SYRINGE FOR CATH/VASC LAB. ONE (08:23)
[2021-10-02] MEDS ORDERED: fentaNYL PF VIAL 100 MCG/2 ML VIAL ONE ×2 (08:23→08:49)
[2021-10-02] MEDS ORDERED: HEPARIN for IV BOLUS 10,000 UNIT/10 ML VIAL. ONE (08:23)
[2021-10-02] MEDS ORDERED: VERAPAMIL 5 MG/2 ML VIAL. ONE (08:23)
[2021-10-02] MEDS ORDERED: LIDOCAINE 1% PF 2 ML VIAL. ONE (08:31)
[2021-10-02] MEDS ORDERED: LIDOCAINE 1% PF 2 ML VIAL. INJ ONE (08:45)
[2021-10-02] MEDS ORDERED: HEPARIN for IV BOLUS 10,000 UNIT/10 ML VIAL. IART ONE (08:45)
[2021-10-02] MEDS ORDERED: VERAPAMIL 5 MG/2 ML VIAL. IART ONE (08:45)
[2021-10-02] MEDS ORDERED: NITROGLYCERIN 200 MCG/2 ML SYRINGE FOR CATH/VASC LAB. IART ONE (08:45)
[2021-10-02] MEDS ORDERED: MIDAZOLAM HCL/PF 2 MG/2 ML VIAL. IV ONE (08:45)
[2021-10-02] MEDS ORDERED: fentaNYL PF VIAL 100 MCG/2 ML VIAL IV ONE (08:45)
--- NOTE | 2021-10-02 09:35 | PDOC ---
MODERATE SEDATION ASSESSMENT RISKS/ALTERNATIVES Risks/Alternatives Risks and alternatives of this type of sedation and procedure discussed with: RISK/ALTERNATIVES: Patient H & P ON CHART H & P H & P on chart and reviewed for co-morbid conditions and appropriate labs. H&P ON CHART: Yes STATUS PREG STATUS ASSESSED: N/A MEDS/ALLERGIES REVIEWED Meds/Allergies Reviewed Medications and Allergies including time and route of recently administered narcotics and sedatives. MEDS/ALLERGIES REVIEWED: Yes ASA RATING ASA RATING: III AIRWAY ASSESSMENT Airway Assessment Airway patency, oral function limitations, presence of caps, crowns, dentures, partials, and ability to extend neck assessed. AIRWAY ASSESSMENT: Yes MALLAMPATI SCORE MALLAMPATI SCORE: II PRE-SEDATION ASSESSMENT PRE-SEDATION ASSESSMENT: Yes BARBARA RICE MD Oct 02, 2021 09:35
[2021-10-02] MEDS ORDERED: IV 1/2 NORMAL SALINE 1,000 ML IV SCH (09:45)
--- NOTE | 2021-10-02 10:05 | CARD ---
MR#: [id number] Date of Study: 10/02/2021 Ordering Physician: BARBARA CHARLTON, Referring Physician: BARBARA CHARLTON Tech: Brenda Kern RT(R) APPROVED REPORT Patient StatusOUT-PATIENT Television Producer: Brenda Kern RT(R) Procedure(s) performed: Aortogram with bilateral lower extremity runoff via right transradial approac h MODERATE SEDATION TIME: 33 MINUTES FLUORO TIME: 7.5 MINS DOSE: 27 GYCM2 CONTRAST: 61CC VISI INDICATION FOR PROCEDURE The indication(s) include : Peripheral artery disease with claudication and abnormal arterial duplex scan. CASE TECHNIQUE After explaining the risks, benefits, and alternative options, informed consent was obtained from the patient. IV conscious sedation was used throughout procedure with appropriate monitoring and was per formed in the presence of a registered nurse who was an independent trained observer other than the sue ann performing the procedure. During this case, Fluoroscopy and low osmolar contrast were used f or imaging. Specimen(s) Removed: No Estimated Blood loss: 15 cc's. PROCEDURE NARRATIVE Patient was brought to the cardiac [facility] and her right wrist was prepped and draped in the usual f ashion after confirming a positive modified Odin's test. Vascular ultrasound guidance was used to o btain right radial arterial access and a 6 [place] sheath was inserted. A 4 [place] R2P PV multicurve catheter was then advanced under fluoroscopic guidance and with the tip positioned in the distal desc ending aorta, aorto iliac angiography was performed. The catheter was then advanced over the wire an d with the tip positioned in the left external iliac artery, selective left lower extremity angiograp hy was performed. The catheter was withdrawn, advanced into the right external iliac artery over a g uidewire and selective right lower extremity angiography was performed. Patient tolerated the proced ure well. Hemostasis was achieved using TR band. There were no immediate complications. FINDINGS 1. The distal descending aorta showed 20% stenosis. 2. No significant stenosis involving bilateral common and external iliac arteries. 3. No significant stenosis involving bilateral common femoral arteries. 4. The right superficial femoral artery showed 30% stenosis in the distal segment. The left superfi cial femoral artery did not show any significant stenosis. The deep femoral arteries bilaterally did not show any significant stenosis. 5. The popliteal arteries bilaterally did not show any significant stenosis. 6. There is good single-vessel runoff below the knee bilaterally via the peroneal artery. The anter ior tibial and posterior tibial arteries bilaterally showed chronic total occlusions proximally (desc ribed in prior angiography). Conclusion Below the knee peripheral vascular disease as described above without any major vascular stenosis abo ve the knee. No significant lesions needing intervention were noted since patient does not have any nonhealing wounds. Recommendations Vascular risk factor modification and regular exercise regimen. Signed by : Barbara Charlton, Electronically Approved : 10/02/2021 10:05:29
--- NOTE | 2021-10-02 12:27 | NUR ---
Pt discharged to home with family. TR band removed and armboard reapplied. Pt ambulated and tolerated PO.
== END 2021-10-02 12:30 | disposition home or self-care (01) ==
LOC: CCL 06:55
PROVIDERS: ATTEND Internal Medicine Cardiovascular Disease
DX: I73.9 Peripheral vascular disease, unspecified (principal); I10 Essential (primary) hypertension; E78.00 Pure hypercholesterolemia, unspecified; M19.90 Unspecified osteoarthritis, unspecified site; F41.9 Anxiety disorder, unspecified; Z85.828 Personal history of other malignant neoplasm of skin; Z79.899 Other long term (current) drug therapy; Z98.890 Other specified postprocedural states; Z79.82 Long term (current) use of aspirin; Z72.89 Other problems related to lifestyle
CPT/HCPCS: 36246; 36415; 75625; 75716; 76937; 80048; 85027; 85610; 99152; 99153; C1769; C1894; J1644; J2250; J3010; J3490

== ENCOUNTER → 2021-10-28 | Outpatient (CLI) | payer BC ==
[2021-10-02 12:15] VITALS: BP 144/69
[~2021-10-28] MED LIST changes: +LEVO100T5 PO
--- NOTE | 2021-10-28 11:59 | KCIC ---
Bilateral digital screening mammograms with 3-D tomosynthesis: Reason for examination: Routine screening. Comparison is made to previous studies dated back to 06/16/2017. Bilateral mammograms in CC and oblique projections were obtained with 2-D imaging and 3-D tomosynthes is imaging on a Siemens Inspiration unit and reviewed on the workstation. Interpretation was made wit h the benefit of CAD. The skin and nipples show no abnormalities. No abnormal axillary lymph nodes are seen. The breast par enchyma is predominantly fatty. (Breast density: Category A.) There are no dominant masses, suspiciou s calcifications or architectural distortion. Benign calcifications are present. Impression: No evidence of malignancy. Recommend routine screening. BI-RAD Category 2: Benign. "Our facility is accredited by the [employer] Mammography Program." This patient's information has been entered into a reminder system for the patient to be notified wit h the results of her examination and a target date for the next mammogram. Electronically signed by: Whitney Voss MD (10/28/2021 11:56 AM) [id number]
== END ==
LOC: KCIC MAMMO 08:43
PROVIDERS: ATTEND Nurse Practitioner Family
DX: Z12.31 Encounter for screening mammogram for malignant neoplasm of breast (principal)
CPT/HCPCS: 77063; 77067

== ENCOUNTER → 2021-11-30 | Outpatient (CLI) | payer BC ==
[2021-10-02 12:15] VITALS: BP 144/69
--- NOTE | 2021-11-30 10:35 | RAD ---
US VENOUS REFLUX History: Reason: BILATERAL LEG EDEMA / Spl. Instructions: / History: Comparison: None. Technique: Multiple longitudinal and transverse high resolution real-time images of the venous system of bilateral lower extremity were obtained with color and Doppler sampling. Findings: Right lower extremity: No occlusion. No significant reflux. Right greater saphenous vein measures 5.7 mm tapering to 2.1 mm. Patent lesser saphenous vein. Left lower extremity: No occlusion. No significant reflux. Right greater saphenous vein measures 6.1 mm tapering to 2.7 mm. Patent left lesser saphenous vein. Left popliteal cyst measures 5.0 x 2.4 x 1. 6 cm. Impression: 1. No ultrasound evidence of significant reflux. 2. Small left popliteal cyst. Electronically signed by: Cam Nair DO (11/30/2021 10:32 AM) [id number]
== END ==
LOC: US 08:51
PROVIDERS: ATTEND Internal Medicine Cardiovascular Disease
DX: R60.0 Localized edema (principal); M71.22 Synovial cyst of popliteal space [Baker], left knee
CPT/HCPCS: 93970